=== PATIENT | female | born 1925 | race Caucasian/White ===

== ENCOUNTER 2017-01-21 06:14 | Inpatient (IN) | payer MEDICARE, OTHER ==
[~2017-01-21] VITALS: Ht 157.5 cm; Wt 55.8 kg
--- NOTE | ~2017-01-21 | EKG ---
PATIENT: JULITA VINSON UNIT #: [id number] Ventricular Rate: 74 BPM Atrial Rate: 74 BPM P-R Interval: 166 ms QRS Duration: 124 ms Q-T Interval: 436 ms QTC Calculation(Bezet): 483 ms P [place]: 90 degrees Calculated R [place]: -38 degrees Calculated T [place]: 100 degrees Diagnosis Line: Normal sinus rhythm Diagnosis Line: Left axis deviation Diagnosis Line: Left bundle branch block Diagnosis Line: Abnormal ECG Diagnosis Line: When compared with ECG of 21-JAN-2017 06:20, Diagnosis Line: (unconfirmed) Diagnosis Line: Sinus rhythm has replaced Atrial fibrillation Diagnosis Line: Vent. rate has decreased BY 67 BPM Diagnosis Line: Left bundle branch block is now Present Diagnosis Line: Criteria for Anterior infarct are no longer Diagnosis Line: Present Diagnosis Line: Confirmed by PAULO PIPER MD ([id number]) on 01/23/2017 Diagnosis Line: 8:14:28 AM INTERPRETING MD: VERONIQUE MG
--- NOTE | ~2017-01-21 | HP ---
Unit #: [id number] #: [id number] Patient: JULITA VINSON [id number] [address] [place], [place] [address] [id number] MR#: [id number] NAME: JULITA VINSON ROOM: 573 Age: 89 Sex: F Admission Date: 01/21/2017 : 1925 Attending Physician: Nile Hwang M.D. Referring Physician: Vijay Gandara M.D. Primary Care Physician: Vijay Gandara M.D. HISTORY AND PHYSICAL HISTORY OF PRESENT ILLNESS This is an 89-year-old white female who is known to Dr. Hwang that has a history of hypertension, paroxysmal supraventricular tachycardia and paroxysmal atrial fibrillation where she is not on anticoagulation because of a GI bleed in 2014. She had a cardiac catheterization in 2013 and was found to have nonobstructive disease. The patient comes to the emergency room with a complaint of chest pain and palpitations. She says she woke up at four to five o'clock this morning and felt uncomfortable. She states she had a constant "hurt" in her left anterior chest that was nonradiating to her neck, arm or jaw. She has been lightheaded for several days. She says she has been experiencing some "out of body experiences" for the past two to three weeks. She was seen by Dr. Hwang in the office on December 25 because of dizziness. She has event monitor that is in place. She was called by [employer] and was told to come to the emergency room for evaluation. In the emergency room, the patient was found to be in atrial fibrillation with rapid ventricular response with a rate of 141 beats per minute. She was treated with aspirin and given a Cardizem bolus, followed by continuous infusion. She has since converted to normal sinus rhythm. PAST MEDICAL HISTORY 1. Two-D echocardiogram 01/04/2017 shows an ejection fraction equal to 55% to 60% with moderate to severe mitral regurgitation. There is moderate mitral anular calcification with peak gradient of 14 mmHg, mean of 6 mmHg. Mitral valve area 1.9 cm squared. Moderate tricuspid regurgitation. 2. Cardiac catheterization in 2013 shows left main normal, LAD 50%, circumflex artery with early atherosclerotic plaque. Right coronary artery 40%. Ejection fraction of 50%. This was done by Dr. García at [facility]. 3. Paroxysmal atrial fibrillation, not on anticoagulation secondary to GI bleed. 4. Hypertension. 5. Paroxysmal supraventricular tachycardia. 6. Left bundle branch block. 7. GI bleed in 2015. SOCIAL HISTORY The patient lives at home alone. Her family lives close by. She has no history of alcohol, tobacco or illicit drug use. FAMILY HISTORY Unit #: [id number] #: [id number] Patient: JULITA VINSON Noncontributory. ALLERGIES Penicillin, codeine and adhesive tapes. HOME MEDICATIONS 1. Amiodarone 100 mg daily. 2. Aspirin 81 mg daily. 3. Docusate sodium 100 mg daily. 4. Multivitamin one tablet daily. 5. Calcium 500 mg daily. REVIEW OF SYSTEMS CONSTITUTIONAL: Negative for fever or chills. Has no weight gain or weight loss. HEENT: No headache, hearing or vision changes or difficulty with swallowing. No dizziness. CARDIOVASCULAR: Has chest pain as described in the HPI. Reports palpitations. No paroxysmal nocturnal dyspnea or orthopnea. No syncope or near syncope. RESPIRATORY: Negative for dyspnea, cough or hemoptysis. GASTROINTESTINAL: No abdominal pain, nausea or vomiting. No constipation or melena. EXTREMITIES: Negative for lower extremity edema. PHYSICAL EXAMINATION VITAL SIGNS: Blood pressure 160/99, heart rate is 73, temperature 98.2, BMI 23. GENERAL: This is an 89-year-old, elderly white female who is in no acute respiratory distress. NEUROLOGICAL: She is awake, alert and oriented. There are no focal weaknesses. NECK: Trachea is midline. No thyromegaly or lymphadenopathy. No jugular venous distention. HEART: S1, S2. With a soft systolic murmur heart best at the apex. No rubs or clicks. Regular rate and rhythm. CHEST: Clear, without rales, rhonchi or wheezing. ABDOMEN: Soft, nontender, with bowel sounds present. No organomegaly. EXTREMITIES: With palpable pedal pulses, without leg edema. SKIN: Warm and dry. DIAGNOSTIC STUDIES LABORATORY: Glucose 114, BUN 15, creatinine 1.1, sodium 140, potassium 3.8, magnesium 1.9, troponin less than 0.05 x2, white count 6.7, hemoglobin 14.3, hematocrit 44.4, platelet count 271. IMAGING: Chest x-ray shows underlying emphysema but no active disease. CARDIOVASCULAR: EKG atrial fibrillation with rapid ventricular response with a rate of 141 beats per minute, with left axis deviation, left bundle branch block. IMPRESSION 1. Recurrent atrial fibrillation with rapid ventricular response, reverted to normal sinus rhythm. 2. 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 3. Mild mitral stenosis. 4. Chest pain secondary to atrial fibrillation with rapid ventricular Unit #: [id number] #: [id number] Patient: JULITA VINSON E response. 5. Chronic left bundle-branch block. 6. Preserved left ventricular systolic function with ejection fraction of 50%. 7. Nonobstructive coronary artery disease for cardiac catheterization in 2013. PLAN 1. Cardiology was asked to see the patient in the emergency room because of atrial fibrillation with rapid ventricular response. The patient has been started on a Cardizem drip and is now in normal sinus rhythm. Will increase amiodarone to 200 mg daily to maintain normal sinus rhythm. 2. Cardizem will be discontinued after the present bag. 3. If the patient has bradycardia that is documented, she would require a permanent pacemaker. 4. Probably home in the a.m. if stable. Dictated by Price Mascorro A.P.R.N. for Allie Jalloh/jackie TD: 01/21/2017 18:21 JOB #: [id number] HISTORY AND PHYSICAL Page 1 of 1 X Price Mascorro APRN HISTORY AND PHYSICAL
--- NOTE | ~2017-01-21 | DS ---
Unit #: [id number] #: [id number] Patient: JULITA VINSON [id number] [address] [place], [place] [address] [id number] MR#: [id number] NAME: JULITA VINSON ROOM: 573 Age: 89 Sex: F Admission Date: 01/21/2017 : 1925 Discharge Date: 01/22/2017 Attending Physician: Nile Hwang M.D. Referring Physician: Vijay Gandara M.D. Primary Care Physician: Vijay Gandara M.D. DISCHARGE SUMMARY HISTORY OF PRESENT ILLNESS/HOSPITAL COURSE The patient is an 89-year-old with a history of sick sinus node syndrome, paroxysmal atrial fibrillation. She was admitted to the hospital yesterday because of sudden onset of palpitations. She was found to be in atrial fibrillation at the time of her arrival in the emergency room, with a heart rate of about 150 to 160 beats per minute. She was stated on intravenous Cardizem and that has converted her rhythm to normal sinus very promptly. The patient had been maintained on amiodarone 200 mg daily, but the dose was cut down recently in view of possible significant bradycardia causing periods of near syncope. She had been evaluated in the office about two or three weeks ago with near syncopal episodes and was started on an event recorder, which she did not continue. Over the last few weeks she had not had any recurrence of syncope. She had been able to do most of her activities without any limitations. She denies any chest discomfort to suggest angina, except during the period of rapid heartbeat yesterday. As soon as her rhythm converted back to normal sinus her chest pains resolved. She has not had any ankle edema, diplopia, blurred vision. PAST MEDICAL HISTORY GI bleeding in 2015 and was taken off of anticoagulation. PHYSICAL EXAMINATION GENERAL: Elderly female in no acute distress. There was no jugular venous distension. Both carotids are with normal upstroke without any bruits and there was no ankle edema. CARDIAC: Apical impulse was normal. Both heart sounds were normal. No rubs or clicks were audible. There was no murmur. CHEST: Occasional rhonchi at the right base. ABDOMEN: Normal. NEUROLOGIC: FACILITIES MAINTENANCE WORKER examination normal. DIAGNOSTIC DATA CARDIAC: Electrocardiogram at the time of admission showed atrial fibrillation with a rapid ventricular rate of 150 per minute, left anterior hemiblock, intraventricular conduction delay, left bundle branch block type. EKG repeated after conversion to normal sinus rhythm showed normal sinus rhythm at a rate of 70 per minute, left bundle branch block, left axis deviation and no acute ischemic changes were noted. LABORATORY: Serum potassium was 4.3, GFR 56.7, creatinine 0.9, BUN 16. Troponin 0.08 with an MB percent of 4.7. Troponin levels were normal Unit #: [id number] #: [id number] Patient: JULITA VINSON yesterday. Clinically the patient's symptoms do not suggest an acute myocardial infarction, but elevated serum MB percent and troponin levels may suggest an acute ischemic event. I will repeat the cardiac enzymes at 1 p.m. and if they are trending upward she will be treated for acute coronary syndrome. Otherwise this mild elevation in troponin levels may be secondary to the rapid heartbeat. Further decisions would be made after results of the cardiac enzymes are received. Dictated by... Allie Jalloh TD: 01/25/2017 08:24 JOB #: [id number] DISCHARGE SUMMARY Page 1 of 1 X Nile Hwang MD DISCHARGE SUMMARY
--- NOTE | ~2017-01-21 | EKG ---
PATIENT: JULITA VINSON UNIT #: [id number] Ventricular Rate: 141 BPM Atrial Rate: 127 BPM QRS Duration: 118 ms Q-T Interval: 332 ms QTC Calculation(Bezet): 508 ms Calculated R [place]: -50 degrees Calculated T [place]: 115 degrees Diagnosis Line: Atrial fibrillation with rapid ventricular Diagnosis Line: response Diagnosis Line: Left axis deviation Diagnosis Line: Left bundle branch block Diagnosis Line: ST and T wave abnormality, consider lateral ischemia Diagnosis Line: Abnormal ECG Diagnosis Line: When compared with ECG of 23-MAY-2016 22:30, Diagnosis Line: Atrial fibrillation has replaced Sinus rhythm Diagnosis Line: Vent. rate has increased BY 66 BPM Diagnosis Line: Diagnosis Line: Diagnosis Line: Confirmed by PAULO PIPER MD ([id number]) on 01/23/2017 Diagnosis Line: 8:12:59 AM INTERPRETING MD: VERONIQUE MG
--- NOTE | ~2017-01-21 | CR72 ---
[facility] A Service of [facility] RADIOLOGY TEXT RESULTS PATIENT: JULITA VINSON LOCATION: [place] [address] : [birth year] UNIT #: [id number] AGE: [address]: Nile Hwang MD SEX: F ORDER DR: [id number] [facility] [address] [place], [place] [address] [id number] MR#: [id number] Acc #: [id number] NAME: JULITA VINSON. : 1925 SEX: F STUDY DATE/TIME: 01/21/2017 6:42 UNIT: DONATO ROOM: STUDY DESCRIPTION: CR Chest Single View Portable Attending Physician: Saurabh Finch M.D. Referring Physician: Vijay Gandara M.D. Ordering Physician: Saurabh Finch M.D. Primary Care Physician: Vijay Gandara M.D. MEDICAL IMAGING REPORT This report is preliminary unless electronic signature is present EXAM Portable chest HISTORY Shortness of air, chest pain onset this morning. FINDINGS Portable view of the chest demonstrates pulmonary hyperinflation and hyperlucency compatible with underlying emphysema. No focal airspace disease or consolidation. No effusions. No mass lesions identified. Mild cardiomegaly and aortic atherosclerotic changes. There is lucency in the right lung apex but no definite pneumothorax. Dictated by... Soheila Duong M.D. THIS IS AN ELECTRONICALLY VERIFIED REPORT Soheila Duong M.D. at 01/21/2017 4:01 PM JAI/chetna TD: 01/21/2017 08:10 JOB #: [id number] MEDICAL IMAGING REPORT Page 1 of 1 COPY
[~2017-01-21 06:14] MED LIST: AMIODARONE PO; ASPIRIN81 M1 PO; ASPIRIN81 MG PO; ATENOLOL25 MG PO; CALCIUM + VITAM1 TAB PO; CALCIUM 600 + D1 TAB; CALCIUM 600 +1 EA14; CIPRO PO; FLAGYL PO; LOMOTIL WHITE2.5 M1 PO; MULTI VITAMIN1 EACH PO; MULTIVITAMIN1 UDCAP PO; NEXIUM; NEXIUM PO; QUINAM PO; ZOFRAN ODT4 MG PO; ZOFRAN ODT4 MG/UDTAB PO
[2017-01-21 06:41] LABS: BASOPHIL% 0.7 % (0-2.5); EOSINOPHIL# 0.1 X10e3 (0-0.7); EOSINOPHIL% 1.6 % (0.0-7.0); HEMATOCRIT 44.4 % (35.0-45.0); HEMOGLOBIN 14.3 gm/dL (12.0-16.0); LYMPHOCYTE# 2.4 X10e3 (1.0-3.5); LYMPHOCYTE% 35.7 % (17.0-45.0); MEAN CELL VOLUME 92.7 FL (83-96); MEAN CORPUSCULAR HEMOGLOBIN 29.8 PG (28-34); MEAN CORPUSCULAR HGB CONC 32.2 g/dL (30-36); MEAN PLATELET VOLUME 8.6 FL (6.5-11.5); MONOCYTE# 0.6 X10e3 (0-1.0); MONOCYTE% 8.7 % (3.0-12.0); NEUTROPHIL# 3.6 X10e3 (1.5-7.1); NEUTROPHIL% 53.3 % (40-75); PLATELET COUNT 271 X10e3 (140-420); RED BLOOD COUNT 4.79 X10e (3.90-5.30); RED CELL DISTRIBUTION WIDTH 14.6 % (11.0-15.5); WHITE BLOOD COUNT 6.7 X10e3 (4.0-10.5)
[2017-01-21 06:42] LABS: DIFF IND NO
[2017-01-21] MEDS ORDERED: AMIODARONE HCL200 MG PO (06:43)
[2017-01-21] MEDS ORDERED: STOOL SOFTENER100 M1 PO (06:44)
[2017-01-21] MEDS ORDERED: ASPIRIN81 MG PO (06:44)
[2017-01-21] MEDS ORDERED: MULTIVITAMINS1 EAC2 PO (06:44)
[2017-01-21] MEDS ORDERED: CALCIUM500 M1 PO (06:45)
[2017-01-21] MEDS ORDERED: CALCIUM PO (06:46)
[2017-01-21 06:51] LABS: POC - CKMB 2.4 ng/mL (0.0-7.9); POC - TROPONIN <0.05 ng/mL (<=0.05)
[2017-01-21 06:54] LABS: PARTIAL THROMBOPLASTIN TIME 27.8 SECONDS (23.5-31.3)
[2017-01-21 07:13] LABS: ALBUMIN SERUM 3.8 g/dL (3.5-5.0); BILIRUBIN, DIRECT 0.1 mg/dL (0.0-0.2); BILIRUBIN,INDIRECT 0.1 mg/dL (0.0-0.9); BILIRUBIN,TOTAL 0.2 mg/dL (0.2-2.0); BUN/CREATININE RATIO 13.63; CALCIUM SERUM 9.2 mg/dL (8.4-10.2); CREATININE SERUM 1.1 mg/dL (0.6-1.4); GLOM FILT RATE Estimated 44.5 mL/min (>60); MAGNESIUM 1.9 mg/dL (1.6-3.0); POTASSIUM 3.8 mmol/L (3.5-5.1); PROTEIN TOTAL SERUM 7.2 g/dL (6.0-8.3)
[2017-01-21 08:35] LABS: POC - CKMB 1.7 ng/mL (0.0-7.9); POC - TROPONIN <0.05 ng/mL (<=0.05)
[2017-01-22 05:55] LABS: BUN/CREATININE RATIO 17.77; CALCIUM SERUM 8.9 mg/dL (8.4-10.2); CREATININE SERUM 0.9 mg/dL (0.6-1.4); GLOM FILT RATE Estimated 56.7 mL/min (>60); MAGNESIUM 1.7 mg/dL (1.6-3.0); POTASSIUM 4.3 mmol/L (3.5-5.1)
[2017-01-22 06:14] LABS: %MB 4.7 % (0.0-4.0); MB 3.2 ng/ml
[2017-01-22 12:37] LABS: %MB 4.5 % (0.0-4.0); MB 3.3 ng/ml
[2017-01-22] MEDS ORDERED: ACETAMINOPHEN PO (15:32)
[2017-01-22] MEDS ORDERED: PLAVIX PO (15:43)
== END 2017-01-22 16:47 | disposition home or self-care (01) | DRG 310 ==
LOC: CED 06:14 → CEDOF 10:30 → CED 12:41 → CEDOF 13:36 → C5C 13:36
PROVIDERS: Emergency Medicine; Internal Medicine Cardiovascular Disease
DX: I48.0 Paroxysmal atrial fibrillation (principal); I49.5 Sick sinus syndrome; I44.7 Left bundle-branch block, unspecified; I25.119 Atherosclerotic heart disease of native coronary artery with unspecified angina pectoris; I47.1 Supraventricular tachycardia; Z79.82 Long term (current) use of aspirin; Z82.49 Family history of ischemic heart disease and other diseases of the circulatory system; I10 Essential (primary) hypertension; I08.1 Rheumatic disorders of both mitral and tricuspid valves; Z88.0 Allergy status to penicillin
CPT/HCPCS: 36415; 71010; 80048; 80076; 82550; 82553; 83735; 84443; 84484; 85025; 85610; 85730; 93005; 96374; 99285; J1650